=== PATIENT | male | born 1995 | race African-American/Black ===

== ENCOUNTER 2017-12-24 00:38 | Emergency (ER) | payer SELFPAY ==
[~2017-12-24] VITALS: Ht 185.4 cm; Wt 88.5 kg
[2017-12-24 00:41] VITALS: BP 127/73
--- NOTE | 2017-12-24 00:44 | NUR ---
TO BED # 3 AMBULATORY , REPORT GIVEN TO ARTEMIO DYER
--- NOTE | 2017-12-24 00:46 | NUR ---
PT ADMITS TO VOMITTING BLOOD SINCE 1999, APPROX 300 ML BRIGHT RED BLOOD; SKIN IS INTACT, PINK/WARM/DRY; AAOX4, PERRL, WITH EVEN AND STEADY GAIT; LUNGS CLEAR BL, BREATHING UNLABORED; HR EVEN AND REGULAR, BL PERIPHERAL PULSES PRESENT; BS ACTIVE X4, NO TENDERNESS TO PALPATION, NO HEPATOSPLENOMEGALLY PALPATED, RESONANT TO PERCUSSION; PT DENIES ANY FEVER, CP, SOB AT THIS TIME; PT STATES 0/10 PAIN AT THIS TIME; VSS; PATIENT POSITIONED FOR COMFORT; HOB ELEVATED; BEDRAILS UP X2; BED DOWN.
[2017-12-24] MEDS ORDERED: ALBUTEROL SULFATE/IPRATROPIU 3 ML SOL IH ONE (00:55)
--- NOTE | 2017-12-24 01:18 | NUR ---
XRAY AT BEDSIDE
--- NOTE | 2017-12-24 01:28 | NUR ---
DPatient discharged with v/s stable. Written and verbal after care instructions given and explained. Patient alert, oriented and verbalized understanding of instructions. Ambulatory with steady gait. All questions addressed prior to discharge. ID band removed. Patient advised to follow up with PMD. Rx of PREDNISONE, ALBUTEROL given. Patient educated on indication of medication including possible reaction and side effects. Opportunity to ask questions provided and answered.
[2017-12-24 01:32] VITALS: BP 109/71
== END 2017-12-24 01:28 | disposition home or self-care (01) ==
LOC: MED 00:38
DX: J20.9 Acute bronchitis, unspecified (principal); F17.210 Nicotine dependence, cigarettes, uncomplicated
CPT/HCPCS: 71045; 94640; 94760; 99283; J7620